=== PATIENT | female | born 1995 | race Two or more races ===

== ENCOUNTER 2020-04-03 21:24 | Emergency (ER) | payer OTHER ==
[~2020-04-03] VITALS: Ht 154.9 cm; Wt 56.7 kg
[2020-04-03 22:52] VITALS: BP 121/86
== END 2020-04-03 22:53 | disposition left against medical advice (07) ==
LOC: ER 21:45
DX: Z04.3 Encounter for examination and observation following other accident (principal); Z53.21 Procedure and treatment not carried out due to patient leaving prior to being seen by health care provider; V89.2XXA Person injured in unspecified motor-vehicle accident, traffic, initial encounter; Y93.89 Activity, other specified; Y92.89 Other specified places as the place of occurrence of the external cause; Y99.8 Other external cause status